=== PATIENT | female | born 1970 | race Caucasian/White ===

== ENCOUNTER 2020-07-14 13:08 | Outpatient (REF) | payer MEDICAID, SELFPAY | END 2020-07-14 13:09 | disposition home or self-care (01) | LOC: HO.LAB 13:08 | PROVIDERS: Visit Provider Internal Medicine | DX: Z20.828 Contact with and (suspected) exposure to other viral communicable diseases (principal) | CPT/HCPCS: C9803; U0003 ==

== ENCOUNTER 2020-09-29 14:00 | Outpatient (REF) | payer MEDICARE, MEDICAID, SELFPAY | END 2020-09-29 14:01 | disposition home or self-care (01) | LOC: HO.LAB 14:00 | PROVIDERS: Visit Provider Internal Medicine | DX: Z20.822 Contact with and (suspected) exposure to COVID-19 (principal) | CPT/HCPCS: 36415; C9803; U0003; U0005 ==

== ENCOUNTER 2022-02-04 09:45 | Outpatient (RCR) | payer MEDICARE, MEDICAID, SELFPAY ==
[2022-02-01 12:08] VITALS: BMI 36.3
--- NOTE | 2022-02-01 13:05 | P.HPPSP_ITS ---
HPI Date of Service: 02/01/22 Chief Complaint: depression,substance abuse HPI Narrative: Patient is a 51-year-old female who presents to [facility] for treatment of worsening depression and anxiety. Patient reports that she has been experiencing worsening mood symptoms, including depression, anxiety, and irritability. She reports that she has been isolating more, but is also limited in how much she can leave her residence due to not having a vehicle. She resides at my sister's house, which is a sober living home and has been there for over 3 years. She has been in recovery for the same amount of time. She has an outpatient behavioral health team, including a psychiatric provider. She reports that she is stable on her current medication regimen. Intake evaluation reviewed. Additional information regarding substance use history in treatment as well as trauma history included in this note. Medical history: -sleep apnea with CPAP at night -diabetes type 2 -COPD Medical Evaluation Reviewed: No (Medical history reviewed with patient) [facility] Medical History (Updated 02/01/22 @ 14:06 by Mandi Armenta CNP) delivery delivered COPD (chronic obstructive pulmonary disease) GERD (gastroesophageal reflux disease) Sciatic leg pain Sleep apnea Tendonitis Type II diabetes mellitus Surgical History (Updated 02/01/22 @ 12:46 by Kalpana Muñoz RN) H/O shoulder surgery H/O: hysterectomy History of bladder surgery Diagnostics Vital Signs (24Hr): BMI result Body Mass Index 36.3 Meds/Allergies Meds Home Medications Medication Instructions Recorded Confirmed Type albuterol sulfate 90 mcg/actuation 2 puff inhalation Q4H PRN Wheezing 02/01/22 02/01/22 History aerosol inhaler (ProAir HFA) diphenhydramine HCl 25 mg capsule 25 mg PO BEDTIME PRN Sleep 02/01/22 02/01/22 History (Banophen) dulaglutide 3 mg/0.5 mL 3 mg subcut QWEEK 02/01/22 02/01/22 History subcutaneous pen injector (Trulicity) glimepiride 4 mg tablet 4 mg PO DAILY 02/01/22 02/01/22 History lamotrigine 100 mg tablet 100 mg PO BID 02/01/22 02/01/22 History lithium carbonate 300 mg capsule 300 mg PO BID 02/01/22 02/01/22 History metformin 500 mg tablet,extended 1,000 mg PO BID 02/01/22 02/01/22 History release 24hr omeprazole 40 mg capsule,delayed 40 mg PO DAILY 02/01/22 02/01/22 History release sertraline 100 mg tablet 200 mg PO DAILY 02/01/22 02/01/22 History trazodone 50 mg tablet 50 mg PO BEDTIME 02/01/22 02/01/22 History Allergies Allergies Allergy/AdvReac Type Severity Reaction Status Date / Time No Known Allergies Allergy Verified 02/01/22 12:03 Mental Status Exam Mental Status Exam Patient Appearance: Well Grooomed and Appropriate Patient Orientation: Person, Place, Time and Situation Level of Consciousness: Appropriate Patient Behavior: Talkative and Cooperative Mood Description: Appropriate Affect Description: Appropriate Thought Process: Rumination (Regarding housemate whom she does not get along wi th) Judgement: Fair Telehealth Telehealth Location of provider rendering services: practice address Location of patient: address on file Patient Identification confirmed using: Name, : Yes Telehealth method: video Patient verbally consented to treatment: Yes Patient verbally consented to billing insurance company: Yes Minutes spent on Phone/Video with Pt.: 45 Assessment & Plan Assessment & Plan (1) MDD (major depressive disorder), recurrent episode: Status: Acute Code(s): F33.9 - Major depressive disorder, recurrent, unspecified Assessment and Plan: * Continue current medication regimen. * Provided with recovery supports in the community, which patient can access via the Internet or in person. * Follow-up is needed Certification I certify that partial hospital treatment is medically necessary due to the symptoms and problems resulting from the patient's mental illness and the failure to treat the patient at the partial hospital level of care would likely result in the patient requiring inpatient psychiatric care which could not be prevented at a less intensive level of care.
--- NOTE | 2022-02-01 15:17 | PC.ADMIT ---
Patient is a 51 year old female who was referred to [facility] by her Sober Living Home staff d/t increased symptoms of depression, anxiety, and trauma secondary to a housemate recently found . Patient has been living in the sober living facility for the past 4 years. Patient reports sobriety from ETOH for the past 4 years, from Cocaine for the past 25-30 years with the exception of relapse one time 2 years ago, and marijuana for 3 years with the exception of relapse one year ago for a few months and one time 3 weeks ago. Patient has a significant trauma history. Per record patient has a history of multiple inpatient hospitalizations last one being 4 years at [facility] inpatient unit for SI and ETOH use. Patient is alert and oriented x4. Presents with depressed mood and affect. Denied SI. Medications reconciled with patient and patient's pharmacy. Patient reports taking medications as prescribed.
== END 2022-02-04 23:59 | disposition home or self-care (01) ==
LOC: HO.PHPA 09:45
PROVIDERS: Visit Provider Psychiatry & Neurology Psychiatry
DX: F33.9 Major depressive disorder, recurrent, unspecified (principal); Z79.899 Other long term (current) drug therapy
CPT/HCPCS: 90791; 90853

== ENCOUNTER 2022-03-20 09:00 | Outpatient (RCR) | payer MEDICARE, MEDICAID, SELFPAY ==
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
[2022-02-28 12:59] LABS: Amphetamine Screen Urine Not Detected (Not Detect); Barbiturates, Urine Not Detected (Not Detect); Benzodiazepines Screen Urine Not Detected (Not Detect); Cannabinoid Screen Urine POSITIVE (Not Detect); Cocaine Screen Urine Not Detected (Not Detect); Fentanyl, urine Not Detected (Not Detect); Opiate Screen Urine Not Detected (Not Detect); Phencyclidine Screen Urine Not Detected (Not Detect)
--- NOTE | 2022-02-28 14:08 | PC.NURSE ---
case opened in tx team
[2022-02-28 15:37] VITALS: BP 108/62; PULSE 96; TEMP 36.2
[2022-02-28 15:38] VITALS: BMI 36.2
--- NOTE | 2022-02-28 15:58 | PC.ADMIT ---
Patient was admitted to [facility] initially on 02/01/22 however was not able to attend at the time as her insurance was not accepting telehealth visits at that time. Program is not in person thus patient is able to attend. Patient lives in a sober living home and was referred to [facility] by staff at the home d/t increased depression, anxiety, and trauma that was triggered by finding a housemate at the program . Patient has been sober from ETOH for 4 years however reports she is struggling with using Marijuana. Patient is alert and oriented x4. Calm and cooperative. Presented with depressed mood and affect. Denied SI. Medications reconciled with patient. Patient reports no changes in medications since the day she was admitted to [facility] on 02/01/22. Reports taking medications as prescribed.
--- NOTE | 2022-03-08 14:19 | PC.NURSE ---
I met with Yazmin who stated that she wasn't feeling well. She shared that she has a physical reaction to another group member . She can not identify why. She states that this is why she avoids leaving her house. We discussed ways to manage the anxiety and how to learn to manage
--- NOTE | 2022-03-18 12:10 | HO.PHPPROGNO ---
Subjective Subjective Date of Service: 03/18/22 Reason For Visit: depression Medical Problems Affecting Mental Status: No Interim History: Reports feeling anxious, but overall improved. No SI/HI, no safety concerns. No cravings to use cannabis or other substances, remains abstinent. Interested in anger management program. Medication Compliance: Yes Side effects from medications: No Attending Groups: Yes Review of Systems Medical Review of Systems: unchanged Review of Systems Review of Systems Yes all other systems are reviewed and are negative Constitutional: Reports no additional constitutional complaints Mental Status Exam Mental Status Exam Narrative: NAD. No abnormal movements. Gait slow/steady. No SI/HI Patient Appearance: Well Grooomed and Appropriate Patient Orientation: Person, Place, Time and Situation Level of Consciousness: Appropriate Patient Behavior: Cooperative Mood Description: Anxious Affect Description: Anxious (notably less anxious, although still present.) Patient Cognition Impaired: No Ability to Follow Directions: Good Speech Pattern: Clear, Appropriate and Coherent Memory Description: Intact Hallucinations: None Delusions: Not Present Thought Process: Intact, Goal Oriented and Linear Thought Content: positive for Intact Depressive Symptoms: Increased Anxiety Judgement: Fair Diagnostics Vital Signs (24Hr): BMI result Body Mass Index 36.2 Assessment & Plan Assessment & Plan (1) Generalized anxiety disorder: Status: Acute Code(s): F41.1 - Generalized anxiety disorder Assessment and Plan: Reports overall all continues with some anxiety, although improved. No depressive sx, no mood lability reported or noted. No SI/HI, no safety concerns. Feels [facility] has been helping. Wants to attend anger management classes, says get angry while driving. Thinking of returning to work. May consider attending [facility] after d/c from this program. Feels current med regimen is working well. (2) Cannabis dependence, uncomplicated: Status: Acute Code(s): F12.20 - Cannabis dependence, uncomplicated Assessment and Plan: Has continued to abstain, participating in groups. (3) Major depressive disorder, recurrent, moderate: Status: Acute Code(s): F33.1 - Major depressive disorder, recurrent, moderate (4) Bipolar 2 disorder: Status: Acute Code(s): F31.81 - Bipolar II disorder Plan 1. continue with current [facility] plan of care. 2. F/U as per protocol. 3. Continue with current medication regimen as prescribed by outpatient provider. Patient educated on: diagnosis, medication risk/benefits, substance abuse and therapeutic strategies Informed Consent: understands Reason for contiued partial hosp. stay Substantial Risk for: inability to function and med/psych decompensation Certification I certify that partial hospital treatment is medically necessary due to the symptoms and problems resulting from the patient's mental illness and the failure to treat the patient at the partial hospital level of care would likely result in the patient requiring inpatient psychiatric care which could not be prevented at a less intensive level of care. I spent minutes with the patient and/or on the patient floor today, greater than?50% of which was spent counseling/coordinating care. Discharge Plan Discharge Attending provider: Richard Campbell Medications: No Action trazodone 50 mg Tablet 50 mg PO BEDTIME sertraline 100 mg Tablet 200 mg PO DAILY Rx Instructions: Take 2 tabs in the morning. omeprazole 40 mg Capsule,Delayed Release(Dr/Ec) 40 mg PO DAILY lithium carbonate 300 mg Capsule 300 mg PO BID diphenhydramine HCl [Banophen] 25 mg Capsule 25 mg PO BEDTIME PRN (Reason: Sleep) glimepiride 4 mg Tablet 4 mg PO DAILY albuterol sulfate [ProAir HFA] 90 mcg/actuation Hfa Aerosol Inhaler 2 puff INHALATION Q4H PRN (Reason: Wheezing) lamotrigine 100 mg Tablet 100 mg PO BID metformin 500 mg Tablet Extended Release 24hr 1,000 mg PO BID Rx Instructions: Take 2 tabs twice a day with meals. Trulicity 3 mg/0.5 mL Pen Injector 3 mg SUBCUT QWEEK Rx Instructions: Takes on Wednesdays. cetirizine [Zyrtec] 10 mg Tablet 10 mg PO DAILY quetiapine [Seroquel] 200 mg Tablet meclizine 25 mg Tablet 25 mg PO BID PRN (Reason: Vertigo) Stand Alone Forms: Patient Portal Discharge page
--- NOTE | 2022-03-20 11:57 | P.PNPSP_ITS ---
Subjective Subjective Date of Service: 03/20/22 Reason For Visit: depression Medical Problems Affecting Mental Status: No Interim History: Describes mood as I'm okay . No SI, says feels safe. No medication concerns. Expressed anxiety about lack of structure once she leaves here, otherwise feels stable for discharge from [facility] today. Medication Compliance: Yes Side effects from medications: No Attending Groups: Yes Review of Systems Acute medical concerns: No Medical Review of Systems: unchanged Review of Systems Review of Systems Yes all other systems are reviewed and are negative Constitutional: Reports no additional constitutional complaints Mental Status Exam Mental Status Exam Narrative: NAD. No abnormal movements. Gait slow/steady. No SI/HI Patient Appearance: Well Grooomed and Appropriate Patient Orientation: Person, Place, Time and Situation Level of Consciousness: Appropriate Patient Behavior: Cooperative Mood Description: Appropriate Affect Description: Appropriate Patient Cognition Impaired: No Ability to Follow Directions: Excellent Speech Pattern: Clear, Appropriate and Coherent Memory Description: Intact Hallucinations: None Delusions: Not Present Thought Process: Intact, Goal Oriented and Linear Thought Content: positive for Intact Judgement: Fair Diagnostics Vital Signs (24Hr): BMI result Body Mass Index 36.2 Assessment & Plan Assessment & Plan (1) Generalized anxiety disorder: Status: Acute Code(s): F41.1 - Generalized anxiety disorder Assessment and Plan: Patient describes mood today as ?I am okay ?. States that she is concerned regarding her daily structure, that she has enjoyed getting up every morning in coming here. She has found [facility] to be helpful. No SI/HI. Remains abstinent from alcohol and cannabis. Lives in sober home. We discussed attending in-person support meetings as a way to add daily structure. Currently she goes to meetings online. She stated that she would consider this as a possibility. Patient feels her current medication regimen is working well. She states she does feel ready for discharge from [facility] today. (2) Bipolar 2 disorder: Status: Acute Code(s): F31.81 - Bipolar II disorder (3) Cannabis dependence, uncomplicated: Status: Acute Code(s): F12.20 - Cannabis dependence, uncomplicated Plan 1. Patient appears stable for discharge from [facility] at this time. 2. Patient to follow-up with outpatient providers going forward. Patient educated on: diagnosis, medication risk/benefits, substance abuse and therapeutic strategies Informed Consent: understands Reason for contiued partial hosp. stay Substantial Risk for: stable for discharge Certification I certify that partial hospital treatment is medically necessary due to the symptoms and problems resulting from the patient's mental illness and the failure to treat the patient at the partial hospital level of care would likely result in the patient requiring inpatient psychiatric care which could not be prevented at a less intensive level of care. I spent minutes with the patient and/or on the patient floor today, greater than?50% of which was spent counseling/coordinating care. Discharge Plan Discharge Attending provider: Richard Campbell Medications: No Action trazodone 50 mg Tablet 50 mg PO BEDTIME sertraline 100 mg Tablet 200 mg PO DAILY Rx Instructions: Take 2 tabs in the morning. omeprazole 40 mg Capsule,Delayed Release(Dr/Ec) 40 mg PO DAILY lithium carbonate 300 mg Capsule 300 mg PO BID diphenhydramine HCl [Banophen] 25 mg Capsule 25 mg PO BEDTIME PRN (Reason: Sleep) glimepiride 4 mg Tablet 4 mg PO DAILY albuterol sulfate [ProAir HFA] 90 mcg/actuation Hfa Aerosol Inhaler 2 puff INHALATION Q4H PRN (Reason: Wheezing) lamotrigine 100 mg Tablet 100 mg PO BID metformin 500 mg Tablet Extended Release 24hr 1,000 mg PO BID Rx Instructions: Take 2 tabs twice a day with meals. Trulicity 3 mg/0.5 mL Pen Injector 3 mg SUBCUT QWEEK Rx Instructions: Takes on Wednesdays. cetirizine [Zyrtec] 10 mg Tablet 10 mg PO DAILY quetiapine [Seroquel] 200 mg Tablet meclizine 25 mg Tablet 25 mg PO BID PRN (Reason: Vertigo) Stand Alone Forms: Patient Portal Discharge page Patient Education: Depression (DC)
--- NOTE | 2022-03-20 12:35 | PC.NURSE ---
Patient scheduled for routing discharge today. Feeling ready for discharge however is anxious regarding what she is going to do next. Shalonda Polk BOAT DOCK OPERATOR reviewed with patient patients's medications with patient. Discharge paperwork faxed to patient providers. Patient denied any safety issues, no SI or thoughts to harm herself.
--- NOTE | 2022-03-20 14:45 | PC.NURSE ---
Called the clients therapist, Tiffanie Galindo and left message regarding clients dc from PHP
== END 2022-03-20 23:59 | disposition home or self-care (01) ==
LOC: HO.PHPA 09:00
PROVIDERS: Nurse Practitioner Psychiatric/Mental Health; Visit Provider Psychiatry & Neurology Psychiatry
DX: F31.81 Bipolar II disorder (principal); F33.1 Major depressive disorder, recurrent, moderate; F41.1 Generalized anxiety disorder; F12.20 Cannabis dependence, uncomplicated; Z79.899 Other long term (current) drug therapy
CPT/HCPCS: 80307; 90791; 90853